=== PATIENT | male | born 1995 ===

== ENCOUNTER 2025-01-23 13:52 | Emergency (ER) | payer OTHER ==
[~2025-01-23] VITALS: Ht 182.9 cm; Wt 96.2 kg
[2025-01-23] MEDS ORDERED: CEFTRIAXONE SODIUM 2,000 MG VIAL ONE (16:12)
[2025-01-23] MEDS ORDERED: KETOROLAC TROMETHAMINE 30 MG VIAL ONE (16:12)
[2025-01-23] MEDS ORDERED: CEFTRIAXONE SODIUM 2,000 MG VIAL IV ONE (16:15)
[2025-01-23] MEDS ORDERED: KETOROLAC TROMETHAMINE 30 MG VIAL IV ONE (16:15)
== END 2025-01-23 18:40 | disposition home or self-care (01) ==
LOC: ER 13:52
DX: L02.01 Cutaneous abscess of face (principal)